=== PATIENT | male | born 1970 | race Caucasian/White ===

== ENCOUNTER 2024-02-25 08:44 | Day surgery (SDC) | payer OTHER ==
[~2024-02-25] VITALS: Ht 30.5 cm; Wt 0.5 kg
[~2024-02-25 08:44] MED LIST: CEFAZOLIN SOD 2 GM in D5W 50 ML IV ONE; LR 1,000 ML IV SCH
[2024-02-25] MEDS ORDERED: BUPIVACAINE LIPOSOME/PF 266 MG/20 ML VIAL INFIL ONE (10:01)
[2024-02-25] MEDS ORDERED: ACETAMINOPHEN I.V. 1000 MG 100 ML IV ONE (10:44)
[2024-02-25] MEDS ORDERED: MEPERIDINE HCL/PF 25 MG/ML DISP.SYRIN IVP PRN (10:45)
[2024-02-25] MEDS ORDERED: hydrALAZINE HCL 20 MG/ML VIAL IVP PRN (10:45)
[2024-02-25] MEDS ORDERED: LABETALOL 100 MG/ 20ML VIAL IVP PRN (10:45)
[2024-02-25] MEDS ORDERED: LR 1,000 ML IV SCH (10:45)
[2024-02-25] MEDS ORDERED: METOCLOPRAMIDE HCL 10 MG/2 ML VIAL IVP PRN (10:45)
[2024-02-25] MEDS ORDERED: HYDROcodone/ACETAMIN 5-325 MG TAB (NORCO/ VICODIN) PO PRN ×2 (11:30)
[2024-02-25] MEDS ORDERED: D5/0.45 NS 1,000 ML IV SCH (11:30)
[2024-02-25] MEDS ORDERED: fentaNYL CITRATE/PF 100 MCG/2 ML AMP ONE (11:31)
[2024-02-25] MEDS ORDERED: ceFAZolin SODIUM 1 GM VIAL ONE (11:31)
[2024-02-25] MEDS ORDERED: HYDROmorphone 1 MG/ML INJ. CARTRIDGE ONE ×3 (11:53→13:50)
[2024-02-25] MEDS: HYDROmorphone 1 MG/ML INJ. CARTRIDGE IVP PRN ×2 (11:55→12:36)
[2024-02-25 12:02] VITALS: O2SAT 99
[2024-02-25 15:49] VITALS: BP_SYST 159; PULSE 78; RESP 16
== END 2024-02-25 15:03 | disposition home or self-care (01) ==
LOC: SDS 08:44 → SMU 08:45 → SDS 15:03
PROVIDERS: ATTEND Colon & Rectal Surgery
DX: K43.6 Other and unspecified ventral hernia with obstruction, without gangrene (principal); K42.0 Umbilical hernia with obstruction, without gangrene; I10 Essential (primary) hypertension; E78.5 Hyperlipidemia, unspecified; Z82.49 Family history of ischemic heart disease and other diseases of the circulatory system; Z98.890 Other specified postprocedural states; Z82.3 Family history of stroke; Z79.899 Other long term (current) drug therapy
CPT/HCPCS: 87081; 49594; 88302; J3490 ×2; J0690; J1100; J1885; J3465; J2704; J3010; J1170; J7060; J7120; C1781; J0131; C9290; J2001